=== PATIENT | female | born 1980 | race Caucasian/White ===

== ENCOUNTER 2016-11-11 20:02 | Emergency (ER) | payer OTHER ==
[2016-11-11 21:18] LABS: BASOPHIL 0.1 % (0-2); EOSINOPHIL 0.4 % (0-5); HGB 12.2 g/dl (12.5-16.0); LYMPHOCYTE 11.5 % (15-48); MCH 31.4 pg (25.0-31.0); MCHC 34.9 g/dL (32.0-36.0); MONOCYTE 6.3 % (0-12); MPV 10.8 fL (6.0-9.5); NEUTROPHIL 81.7 % (41-80); PLT 351 K/uL (150-400); RBC 3.89 M/uL (4.20-5.40); RDW 13.4 % (11.5-14.0)
[2016-11-11 21:19] LABS: WBC 19.3 K/uL (4.0-10.5)
[2016-11-11 21:28] LABS: CREATININE 0.9 mg/dL (0.5-1.0); POTASSIUM 3.6 mmol/L (3.5-5.1)
== END 2016-11-11 23:50 | disposition home or self-care (01) ==
LOC: FER 20:02
PROVIDERS: Emergency Medicine
DX: S50.11XA Contusion of right forearm, initial encounter (principal); M25.571 Pain in right ankle and joints of right foot; F17.210 Nicotine dependence, cigarettes, uncomplicated; Z98.890 Other specified postprocedural states; V47.5XXA Car driver injured in collision with fixed or stationary object in traffic accident, initial encounter; Y92.410 Unspecified street and highway as the place of occurrence of the external cause
CPT/HCPCS: 36415; 73090; 73610; 73630; 80048; 85025; J1100; J1885